=== PATIENT | female | born 2000 | race African-American/Black ===

== ENCOUNTER 2024-06-08 11:15 | Emergency (ER) | payer OTHER, SELFPAY ==
[2024-06-08 11:16] VITALS: BP 126/87
--- NOTE | 2024-06-08 11:49 | ED.GENMED ---
History of Present Illness
General
Chief Complaint: Chest Pain
Source: patient
Time Seen by Provider: 06/08/24 11:36
History of Present Illness
History of Present Illness:
23yoF with no significant past medical history presenting for evaluation of bilateral hand cramping and chest pain. Patient reports left upper chest pain that began this morning when she woke up from sleep. The pain is described as a tightness. She
reports intermittent similar pains over the past few months. Nothing seems to make the pain better or worse. She was helping her brother move into his college dorm this morning and was moving boxes. She started to notice that her right hand was
cramping and 'locked up.' She then started to experience bilateral hand shakiness so decided to come to the ED. Symptoms are currently improved.
Phy Exam
General Physical Exam
General Presentation: well appearing and no apparent distress
General age: appears stated age
General Skin: warm and dry
General Habitus: normal
General Mental: alert
Cardiovascular Exam
Cardiovascular Exam: regular rate/rhythm, no edema, no murmur and normal peripheral pulses (2+ radial pulses bilaterally)
Pulmonary Exam
Pulmonary Exam: lungs clear, no respiratory distress, no crackles and no wheezing
Neurological Exam
Neurological Exam: alert and no motor deficits
Skin Exam
Skin Exam: normal color and warm/dry
Psychiatric Exam
Psychiatric Exam: normal mood/affect
Scores
Heart Score for Chest Pain Patients
STEMI patient?: No
History: Slightly or Non-Suspicious
ECG: Normal
Age: </= 45 years
Risk Factors: No Risk Factors
Troponin: </= Normal Limit
Heart Score for Chest Pain Patients: 0
Heart Score Risk: 2.5% MACE over next 6 weeks
Course
Orders/Labs/Results
Orders:
Orders
06/08/24 11:18
ECG [Electrocardiogram (*1)] Urgent
Reason for Study: Chest Pain
EKG- Treatment ONCE
06/08/24 11:48
Cardiac Monitoring- Treatment ONCE
0.9% Sodium Chloride 1000 ml [Nss] 1,000 ml IV BOLUS
Test Result ONCE
06/08/24 12:00
Complete Blood Count/With Diff Urgent
Comprehensive Metabolic Panel Urgent
Magnesium Urgent
Troponin I Urgent
06/08/24 12:02
HCG, Urine Qualitative Screen Urgent
Date Specimen was Collected: 06/08/24
Time Specimen was Collected: 12:01
06/08/24 13:21
CR Chest - 2 Views Urgent
Comment:
Reason For Exam: CP
Abnormal Lab Results
06/08/24
12:00
RBC 3.91 L 10^6/uL
(4.20-5.40)
Hgb 11.0 L g/dL
(12.0-16.0)
Hct 31.0 L %
(37.0-47.0)
MCV 79.3 L fL
(81.0-99.0)
MPV 11.1 H fL
(7.4-10.4)
06/08/24 12:00
06/08/24 12:00
Vital Signs
Initial and Last Documented VS:
Initial Vital Signs
Temp Pulse Resp BP Pulse Ox
99.6 F 90 20 126/87 97
06/08/24 11:16 06/08/24 11:16 06/08/24 11:16 06/08/24 11:16 06/08/24 11:16
Last Documented Vital Signs
Temp Pulse Resp BP Pulse Ox
99.6 F 90 20 96/84 100
06/08/24 11:16 06/08/24 13:58 06/08/24 13:58 06/08/24 13:58 06/08/24 13:30
MDM/Problems Addressed
Differential Diagnosis Includes:
23yoF here with bilateral hand cramping that began while she was helping her family member move. Also having chest pain that began this morning. History of similar chest pains in the past. Currently feeling improved. She is afebrile and
hemodynamically stable. She is well appearing in no distress. Exam is reassuring. Differential diagnosis includes but is not limited to: dehydration, electrolyte abnormality, anxiety, arrhythmia, doubt ACS
Initial ED plan: Check cardiac labs, magnesium, EKG, and CXR. IV fluid bolus.
*EKG
Interpreted by ED Provider?: Yes
EKG Intrepretation Date: 06/08/24
EKG Intrepretation Time: 11:51
Heart Rate: 83
Rate: normal
Rhythm: sinus
[place]: normal axis
Interval: normal interval
QRS Pattern: normal QRS
Ischemia: no ischemia
*Critical Care Note
Total Time (30-74mins, 75-104mins- exclusive of procedures): Not Applicable
Update Note
Update Note:
Labs overall unremarkable other than mild anemia. Electrolytes, glucose, renal function normal. EKG shows NSR without ischemic changes and troponin WNL. CXR is clear. Hand cramping/shakiness has resolved on reassessment. She is stable for discharge.
Advised close f/u with PCP. ED return precautions discussed. She expressed understanding and is agreeable to plan. Patient discharged in stable condition.
ED Attending Note
-
Portions of this chart may have been created with voice recognition software.� Occasional wrong word or��sound alike� substitutions may have occurred due to the inherent limitations of voice recognition software.
Discharge Plan
Departure
Patient Disposition: Home (Routine Discharge)
Date of Disposition: 06/08/24
Time of Disposition: 14:02
Patient with high blood pressure during this ER visit?: No
Discharge Problem:
Cramping of hands, Nonspecific chest pain
Instructions: Chest Pain
Prescriptions:
No Action
No Current Medications
0
Referrals:
UNKNOWN - PT DOES,NOT KNOW [Family Provider] -
Activity Restrictions/Additional Instructions:
Please follow-up with your family doctor. Return to the ER with any new or worsening symptoms.
Interventions
Interventions:
*Risk Screen - Suicide Last Done: 06/08/24 14:59
*Neglect/Abuse Screening Last Done: 06/08/24 12:16
ED- Fall Risk Assessment Last Done: 06/08/24 12:16
*ED COVID-19 Vaccine History Last Done: 06/08/24 12:21
*Nursing Disposition Last Done: 06/08/24 14:00
ED- Cardiac Assessment Last Done: 06/08/24 12:16
Discharge Date and Time
Discharge Date/Time: 06/08/24 14:00
Print Language: BARBAD[place]
[2024-06-08] MEDS: NSS 1000 IV (12:04)
[2024-06-08 12:11] VITALS: BP 117/83
[2024-06-08 12:16] VITALS: BP 117/83
[2024-06-08 12:21] LABS: % Basophils 0.4 % (0-2); % Eosinophils 0.6 % (0-6); % Immature Granulocytes 0.2 % (0-0.5); % Lymphocytes 32.4 % (20.5-51.1); % Monocytes 8.6 % (1.7-9.3); % Neutrophils 57.8 % (42.2-75.2); Absolute Lymphocytes 1.7 10^3/uL (1.2-3.4); Absolute Monocytes 0.4 10^3/uL (0.1-0.6); Mean Corp Hgb Conc. 35.5 g/dL (33.0-37.0); Mean Corpuscular Hgb 28.1 pg (27.0-31.0); Mean Corpuscular Volume 79.3 fL (81.0-99.0); Mean Platelet Volume 11.1 fL (7.4-10.4); Nucleated Red Blood Cells % 0 %; Platelet Count 255 10^3/uL (130-400); Red Blood Cell Count 3.91 10^6/uL (4.20-5.40); Red Cell Dist. Width 13.9 % (11.5-14.5); White Blood Cell Count 5.1 10^3/uL (4.8-10.8)
[2024-06-08 12:33] LABS: HCG, Urine Qualitative Screen Negative
[2024-06-08 12:34] LABS: ALT (SGPT) 12 U/L (0-35); AST (SGOT) 22 U/L (14-36); Albumin 4.3 g/dl (3.5-5.0); Alkaline Phosphatase 81 U/L (38-126); Blood Urea Nitrogen 13 mg/dl (7-17); Calcium 9.2 mg/dl (8.4-10.2); Carbon Dioxide 26 mmol/L (22-30); Chloride 106 mmol/L (98-107); Glucose 93 mg/dl (70-99); Magnesium 1.7 mg/dl (1.6-2.3); Potassium 3.5 mmol/L (3.5-5.1); Sodium 137 mmol/L (135-145); Total Bilirubin 0.7 mg/dl (0.2-1.3); eGFR > 60.00
[2024-06-08 12:45] LABS: Troponin I < 0.012 ng/ml
[2024-06-08 13:00] VITALS: BP 110/65
[2024-06-08 13:58] VITALS: BP 96/84
== END 2024-06-08 14:00 | disposition home or self-care (01) ==
LOC: EMR 11:15
PROVIDERS: Physician Assistant; EMERGENCY PHYSICIAN Emergency Medicine
DX: R25.2 Cramp and spasm (principal); R07.89 Other chest pain
CPT/HCPCS: 99283; 96360; 71046; 80053; 81025; 83735; 84484; 85025; 93005